=== PATIENT | female | born 1960 | race American Indian/Alaskan Native ===

== ENCOUNTER 2017-12-12 17:48 | Emergency (ER) | payer OTHER, BC ==
[2017-12-12] MEDS ORDERED: TORADOL IM ONE (23:15)
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
[2017-12-13 01:46] VITALS: BP 173/82
== END 2017-12-13 01:47 | disposition home or self-care (01) ==
LOC: ED 17:48
DX: S39.012A Strain of muscle, fascia and tendon of lower back, initial encounter (principal); S16.1XXA Strain of muscle, fascia and tendon at neck level, initial encounter; V87.7XXA Person injured in collision between other specified motor vehicles (traffic), initial encounter; Y93.89 Activity, other specified; Y99.8 Other external cause status; Y92.410 Unspecified street and highway as the place of occurrence of the external cause
CPT/HCPCS: 72040; 72100; 96372; 99283; J1885